=== PATIENT | female | born 1950 | race Caucasian/White ===

== ENCOUNTER 2019-08-04 17:26 | Inpatient (IN) ==
[2019-08-04] MEDS ORDERED: ASPIRIN CHEW 324 MG PO STA (17:32)
[2019-08-04] MEDS ORDERED: SODIUM CHLORIDE 0.9% 500 ML IV ONE (17:32)
--- NOTE | 2019-08-04 17:34 | Emergency Department Note ---
Impression & Plan Atrial fibrillation with RVR, Chest pain, Acute hypokalemia, Abnormal ECG Allergies Allergies Allergy/AdvReac Type Severity Reaction Status Date / Time No Known Allergies Allergy Verified 08/04/19 18:19 Home Meds Home Medications Medication Instructions Recorded Confirmed alprazolam 0.25 mg PO HS PRN 08/04/19 08/04/19 aspirin 81 mg PO QAM 08/04/19 08/04/19 cholecalciferol (vitamin D3) 1,000 unit PO QAM 08/04/19 08/04/19 [Vitamin D3] ibuprofen 600 mg PO Q6H PRN 08/04/19 08/04/19 lisinopril-hydrochlorothiazide 1 tab PO QAM 08/04/19 08/04/19 melatonin 5 mg PO HS PRN 08/04/19 08/04/19 metformin 500 mg PO QAM 08/04/19 08/04/19 multivitamin 1 tab PO QAM 08/04/19 08/04/19 omeprazole magnesium [Prilosec OTC] 20 mg PO QAM 08/04/19 08/04/19 ED Provider Note NAME: DARYL PEÑA AGE: 69 SEX: F : 1950 ARRIVES VIA: Ambulance INFORMANT: Patient ED PROVIDER(S): Oskar Beltran DO CHIEF COMPLAINT: Palpitations HPI: Patient is a 69-year-old female who presents the ER for palpitations. She notes that she feels her heart rate racing. It started around 2 PM and has been persistent. It has down slightly but she notes it comes and goes. She can feel it in her throat. She does have a little bit of a burning in her throat. No other chest pain or shortness of breath. No nausea vomiting or diarrhea. She is been eating and drinking appropriately. She is a previous [employer] nurse. She has never had this before. ROS: See above HPI for pertinent positives & negatives. A total of 10 systems reviewed and were otherwise negative. PAST MEDICAL HISTORY:hypertension PAST SURGICAL HISTORY:L knee replacement FAMILY HISTORY:Cancer and Diabetes SOCIAL HISTORY:denies alcohol HOME MEDICATIONS:See Below ALLERGIES:See Below VITALS:See Below PHYSICAL EXAMINATION: GENERAL: Sitting up in bed, alert, well appearing, well nourished, no distress, non-toxic EYE EXAM: normal conjunctiva. OROPHARYNX: no exudate, no erythema, lips, buccal mucosa, and tongue normal and mucous membranes are moist NECK: supple, no nuchal rigidity, no adenopathy, non-tender LUNGS: Clear to auscultation. Normal chest wall mechanics HEART: Tachycardic and irregularly irregular, S1 normal and S2 normal ABDOMEN: abdomen soft, non-tender, normo-active bowel sounds, no masses, no rebound or guarding. BACK: Back is symmetrical on inspection and there is no deformity, no midline tenderness, no CVA tenderness. SKIN: no rashes and no bruising UPPER EXTREMITIES: upper extremities are grossly normal. LOWER EXTREMITIES: No pitting edema. NEURO EXAM: Normal sensorium, cranial nerves II-XII grossly intact, normal speech, no gross weakness of arms, no gross weakness of legs. MEDICAL DECISION MAKING: Patient is a 69-year-old female from out of town that presents the ER for palp itations. She was brought in by EMS. Upon arrival she was found to be in A. fib with RVR. Per EMS she went in and out of A. fib with RVR to a sinus rhythm on 2 separate occasions. She did the same thing here following a bolus of Cardizem. IV was established blood work was obtained. Labs show no significant leukocytosis or anemia. INR was unremarkable. BMP with a mild hypokalemia. LFTs bilirubin and troponin was negative. Lipase was negative. She was given IV potassium along with oral potassium. She is given IV magnesium. EKG show A. fib with RVR and a sinus bradycardia. Initial EKG had ST depressions which I do favor secondary to the rate as they improved with the second EKG. Patient was given aspirin. She was given a bolus IV fluids. She is updated bedside. Due to the multiple occurrences of in and out of A. fib with RVR I discussed the case with the hospitalist for observation. Triage Nursing notes reviewed. Prior medical records reviewed Vital Signs: reviewed and remarkable for tachycardia Differential diagnosis: Differential diagnoses includes but is not limited to acute coronary syndrome, myocardial infarction, pericarditis, pulmonary embolus, aortic dissection, pneumonia, pneumothorax, musculoskeletal, shingles, esophageal. ER treatment provided: See below Diagnostics interpreted by me: ECG: A. fib with RVR rate of [address] depressions in the inferior lines and high lateral Septal Q waves ST depressions in the lateral leads EKG#2 Sinus bradycardia rate of [address] wave changes in the inferior leads Septal Q waves No PVCs Cardiac Monitoring: A. fib with a rate of 121. Laboratory studies: As stated above and show below. Imaging studies: Portable AP upright 1 view shows no focal infiltrate or pneumothorax Consultation(s): Dr. Roger Rosa ED COURSE: Procedures: none Past Med/Surg History Social History Feels Safe at Home: Yes Smoking Status: Never smoker Results & Data (ED) Vital Signs Vital Signs - 24 hr 08/04/19 17:34 08/04/19 17:37 08/04/19 17:40 Temperature 36.9 C Temperature Source Oral Pulse Rate 119 H 153 H 126 H Pulse Rate [Finger] 120 H Pulse Rate from SpO2 Sensor 107 H 153 H 119 H Respiratory Rate 15 17 21 Blood Pressure 128/82 128/82 Blood Pressure [Right Arm] 128/82 Blood Pressure Mean 97 94 Blood Pressure Mean [Right Arm] 97 Pulse Oximetry 97 98 97 Oxygen Delivery Method Room Air Room Air Room Air Sepsis Recent Fever Within 48 Hours No Sepsis New/Unexplained Change in Mental Status No Sepsis Action Taken by Nursing No Action Required 08/04/19 18:02 08/04/19 18:10 08/04/19 18:20 Temperature Temperature Source Pulse Rate 96 H 90 69 Pulse Rate [Finger] Pulse Rate from SpO2 Sensor 78 56 L 69 Respiratory Rate 16 18 17 Blood Pressure Blood Pressure [Right Arm] Blood Pressure Mean Blood Pressure Mean [Right Arm] Pulse Oximetry 98 96 97 Oxygen Delivery Method Room Air Room Air Room Air Sepsis Recent Fever Within 48 Hours Sepsis New/Unexplained Change in Mental Status Sepsis Action Taken by Nursing 08/04/19 18:30 08/04/19 18:31 08/04/19 18:40 Temperature Temperature Source Pulse Rate 58 L 60 61 Pulse Rate [Finger] Pulse Rate from SpO2 Sensor 59 L 58 L Respiratory Rate 15 16 13 Blood Pressure 125/54 L Blood Pressure [Right Arm] Blood Pressure Mean 84 Blood Pressure Mean [Right Arm] Pulse Oximetry 96 97 Oxygen Delivery Method Room Air Room Air Room Air Sepsis Recent Fever Within 48 Hours Sepsis New/Unexplained Change in Mental Status Sepsis Action Taken by Nursing 08/04/19 19:00 Temperature Temperature Source Pulse Rate 56 L Pulse Rate [Finger] Pulse Rate from SpO2 Sensor 54 L Respiratory Rate 22 Blood Pressure 126/55 L Blood Pressure [Right Arm] Blood Pressure Mean 80 Blood Pressure Mean [Right Arm] Pulse Oximetry 97 Oxygen Delivery Method Sepsis Recent Fever Within 48 Hours Sepsis New/Unexplained Change in Mental Status Sepsis Action Taken by Nursing Laboratory Data Result diagrams: 08/04/19 17:44 08/04/19 17:44 Lab Results 08/04/19 08/04/19 08/04/19 Range/Units 17:44 17:44 17:44 WBC 10.53 (4.8-10.8) K/uL RBC 4.51 (4.2-5.4) M/uL Hgb 13.4 (12.0-16.0) g/dL Hct 40.4 (37-47) % MCV 89.6 (80-100) fL MCH 29.7 (25-34) pg MCHC 33.2 (32-36) g/dL RDW Std Deviation 47.3 H (36.4-46.3) fL RDW Coeff of Jay 14.5 (11.5-14.5) % Plt Count 286 (130-400) K/uL MPV 9.2 (7.4-10.4) fL Immature Gran % (Auto) 0.3 % Neut % (Auto) 67.1 % Lymph % (Auto) 24.2 % [place] % (Auto) 7.1 % Eos % (Auto) 1.0 % Baso % (Auto) 0.3 % Immature Gran # (Auto) 0.03 H (0.00-0.02) K/uL Neut # (Auto) 7.06 H (1.4-6.5) K/uL Lymph # (Auto) 2.55 (1.2-3.4) K/uL [place] # (Auto) 0.75 H (0.11-0.59) K/uL Eos # (Auto) 0.11 (0-0.5) K/uL Baso # (Auto) 0.03 (0-0.2) K/uL PT 11.0 (9.0-12.0) Seconds INR 1.0 (0.9-1.1) APTT 25.4 (21.0-31.0) Seconds PTT Ratio 0.9 Sodium 142 (136-145) mmol/L Potassium 2.9 L (3.5-5.1) mmol/L Chloride 111 H (98-107) mmol/L Carbon Dioxide 23 (21-32) mmol/L Anion Gap 8.0 (3-11) BUN 16 (7-18) mg/dl Creatinine 1.32 H (0.6-1.2) mg/dl Est Cr Clr Drug Dosing 35.9 ml/min Est GFR ( Amer) 46.9 Est GFR (Non-Af Amer) 40.5 BUN/Creatinine Ratio 11.7 (10-20) Glucose 173 H (70-99) mg/dl Calcium 9.7 (8.5-10.1) mg/dl Total Bilirubin 0.3 (0.2-1) mg/dl AST 12 L (15-37) U/L ALT 22 (12-78) U/L Alkaline Phosphatase 73 (45-117) U/L Troponin I < 0.015 (0-0.045) ng/ml Total Protein 7.6 (6.4-8.2) gm/dl Albumin 3.8 (3.4-5.0) gm/dl Globulin 3.8 (2.5-4.0) gm/dl Albumin/Globulin Ratio 1.0 (0.9-2) Lipase 153 (73-393) U/L Administered Medications Potassium Chloride (K [place] / Wtr) 10 meq in 100 mls @ 100 mls/hr IV Q1H RINA Stop: 08/04/19 20:59 Last Admin: 08/04/19 19:01 Dose: 100 mls/hr Documented by: [id number] Magnesium Sulfate/Dextrose (Magnesium Sulfate / D5w) 1 gm in 100 mls @ 100 mls/hr IV ONE ONE Stop: 08/04/19 19:45 Last Admin: 08/04/19 19:02 Dose: 100 mls/hr Documented by: [id number] Discontinued Medications Aspirin (Aspirin) 324 mg PO NOW STA Stop: 08/04/19 17:33 Last Admin: 08/04/19 18:04 Dose: 324 mg Documented by: [id number] Diltiazem HCl (Cardizem) 5 mg IV NOW STA Stop: 08/04/19 17:40 Last Admin: 08/04/19 18:09 Dose: 5 mg Documented by: [id number] Cosigned by: [id number] Sodium Chloride (Nss) 500 mls @ 999 mls/hr IV .Q31M ONE Stop: 08/04/19 18:02 Last Infusion: 08/04/19 18:36 Dose: 0 mls/hr Documented by: [id number] Admin: 08/04/19 18:04 Dose: 999 mls/hr Documented by: [id number] Discharge Plan Visit Data Chief Complaint: Cardiac Assessment Stated Complaint: CARDIAC ASSESSMENT, (AFIB) ED Provider: Oskar Beltran Discharge Problem: Atrial fibrillation with RVR, Chest pain, Acute hypokalemia, Abnormal ECG Forms Stand Alone Forms: [facility] [place] [employer] Prescriptions Prescriptions: No Action multivitamin Tablet 1 tab PO QAM RF: 0 metformin 500 mg Tablet 500 mg PO QAM RF: 0 aspirin 81 mg Tablet,Delayed Release (Dr/Ec) 81 mg PO QAM RF: 0 alprazolam 0.25 mg Tablet 0.25 mg PO HS PRN (Reason: Anxiety) RF: 0 lisinopril-hydrochlorothiazide 20-25 mg Tablet 1 tab PO QAM RF: 0 ibuprofen 600 mg Tablet 600 mg PO Q6H PRN (Reason: Pain) RF: 0 cholecalciferol (vitamin D3) [Vitamin D3] 25 mcg (1,000 unit) Capsule 1,000 unit PO QAM RF: 0 Prilosec OTC 20 mg Tablet,Delayed Release (Dr/Ec) 20 mg PO QAM RF: 0 melatonin 5 mg Tablet 5 mg PO HS PRN (Reason: Sleep) RF: 0 Discharge Problem: Chest pain Qualifiers: Chest pain type: unspecified Qualified Code(s): R07.9 - Chest pain, unspecified
[2019-08-04] MEDS ORDERED: dilTIAZem HCl 5 MG/ML 5 ML VIAL IV STA (17:39)
[2019-08-04] MEDS ORDERED: STAT IV Infusion **Titration per Protocol STA (17:39)
[2019-08-04] MEDS ORDERED: dilTIAZem HCL 125 MG in DEXTROSE 5% 100 ML IV SCH (17:45)
[2019-08-04 17:54] LABS: Basophils # (auto) 0.03 K/uL (0-0.2); Basophils % (auto) 0.3 %; Eosinophils # (auto) 0.11 K/uL (0-0.5); Hematocrit (blood only) 40.4 % (37-47); Hemoglobin 13.4 g/dL (12.0-16.0); Immature Granulocytes # (auto) 0.03 K/uL (0.00-0.02); Immature Granulocytes % (auto) 0.3 %; Lymphocytes # (auto) 2.55 K/uL (1.2-3.4); Lymphocytes % (auto) 24.2 %; Mean Corpuscular Hemoglobin 29.7 pg (25-34); Mean Corpuscular Hgb Conc 33.2 g/dL (32-36); Mean Corpuscular Volume 89.6 fL (80-100); Mean Platelet Volume 9.2 fL (7.4-10.4); Monocytes # (auto) 0.75 K/uL (0.11-0.59); Monocytes % (auto) 7.1 %; Neutrophils # (auto) 7.06 K/uL (1.4-6.5); Neutrophils % (auto) 67.1 %; Platelet Count 286 K/uL (130-400); RDW Coefficient of Variation 14.5 % (11.5-14.5); RDW Standard Deviation 47.3 fL (36.4-46.3); Red Blood Count 4.51 M/uL (4.2-5.4); White Blood Count 10.53 K/uL (4.8-10.8)
--- NOTE | 2019-08-04 17:57 | XRay Report ---
XR chest 1V portable CLINICAL HISTORY: Chest Pain dyspnea COMPARISON STUDY: No previous studies for comparison. FINDINGS: The bones soft tissues and hemidiaphragms are normal. The cardiomediastinal silhouette is n ormal. The lungs are clear. The pulmonary vasculature is normal. IMPRESSION: Negative chest. ACT 112: Negative or not required by law. The above report was generated using voice recognition software. It may contain grammatical, syntax or spelling errors. Electronically signed by: Julián Lee M.D. 08/04/2019 5:56 PM
[2019-08-04 18:06] LABS: Partial Thromboplastin Ratio 0.9; Partial Thromboplastin Time 25.4 Seconds (21.0-31.0)
[2019-08-04 18:30] LABS: Alanine Aminotransferase 22 U/L (12-78); Albumin Level 3.8 gm/dl (3.4-5.0); Aspartate Aminotransferase 12 U/L (15-37); BUN Creatinine Ratio 11.7 (10-20); Blood Urea Nitrogen 16 mg/dl (7-18); Calcium 9.7 mg/dl (8.5-10.1); Carbon Dioxide 23 mmol/L (21-32); Chloride 111 mmol/L (98-107); Creatinine Clr Calc Pharmacy 35.9 ml/min; Est GFR (African American) 46.9; Est GFR (Non-African American) 40.5; Glucose 173 mg/dl (70-99); Lipase 153 U/L (73-393); Potassium 2.9 mmol/L (3.5-5.1); Sodium 142 mmol/L (136-145)
[2019-08-04 18:35] LABS: Alkaline Phosphatase 73 U/L (45-117); Bilirubin,Total 0.3 mg/dl (0.2-1); Globulin 3.8 gm/dl (2.5-4.0); Total Protein 7.6 gm/dl (6.4-8.2); Troponin I < 0.015 ng/ml (0-0.045)
[2019-08-04] MEDS ORDERED: MAGNESIUM SULFATE / D5W 1 GM/100 ML BAG IV ONE (18:46)
[2019-08-04] MEDS: POTASSIUM CHLORIDE / WTR 10 MEQ/100 ML PLCT IV SCH ×2 (19:01→20:04)
[2019-08-04] MEDS ORDERED: POTASSIUM CHLORIDE 20 MEQ TABCR PO STA (19:27)
--- NOTE | 2019-08-04 21:31 | History & Physical Report ---
Date of Service August 04, 2019 Assessment & Plan (1) Atrial fibrillation with RVR: 69 yo F with PMH HTN, prediabetes, GERD presents with feelings of palpitations found to be in A fib with RVR on EKG. AFib w/ RVR -admit to telemetry -EKG on arrival shows A fib with RVR. ST depressions most prominent in inferior leads that are likely 2/2 tachycardia -Pt given diltiazem bolus x1 and started on diltiazem gtt and repeat EKG showed sinus bradycardia -will stop cardizem gtt and convert to oral diltiazem 180mg -initial trop neg. Findings with low concern for ACS -nitroglycerin prn for any chest pain -CHADS-VASC score 4 points- moderate-high risk. HAS-BLED score 2 points. Will start pt on Heparin for now and can convert to PO moving forward -ECHO pending -Cardiology Consult appreciated HTN -Diltiazem as above -holding HCTZ for now as it likely contributed to pt's hypokalemia and subsequently AF. Can decide whether or not to cont or change agents moving forward Hypokalemia -K 2.9 on admission. Repleted with PO K 40 meq, IV K 10 meq -will recheck now and with daily BMP -replete as needed Prediabetes -pt notes A1c ?5.6 in Feb 2019 -hold home metformin here. SSI -A1C pending GERD -cont omeprazole FEN/GI: HH/DM2 Diet DVT Prophylaxis: Heparin Full Code Dispo: PCU Tele History of Present Illness Chief Complaint: palpitations Primary Care Provider: NO PCP 69 yo F with PMH HTN, prediabetes, GERD presents to [facility] with concerns of palpitations. Pt is from [place] and was in [place] for her mother's this AM. Pt went home and had tuna sandwich for lung and about 10 minutes later had feelings similar to that of reflux; however, states that this was a little different because she did not have the associated back/rib pain that she normally has with GERD. She felt like her heart was racing/beating out of chest and also felt this sensation in her throat. Palpitations were intermittent but persistent. Alleviated some by resting in bed, no exacerbating factors. No prior such occurrences like this before. Pt taken to where they did not have EKG capabilities but noted HR in 160s and pt brought over to ED via EMS. Associated lightheaded/dizziness, but pt otherwise denies CP, SOB, diaphoresis, ORDOÑEZ, s yncope or near syncope, edema, F/N/V/D, chills, RINCON, abd pain, urinary sxs. Pt with no other acute concerns or complaints. EKG: A fib with RVR. ST depressions most prominent in inferior leads CXR: Negative Chest Pertinent Labs: K 2.9, Cr 1.32, Glu 173, Trop neg ER Course: ASA 324mg, IV Diltiazem 5mg, Diltiazem gtt, IV MgSO4 1g, PO K 40 meq, IV K 10 meq Family Hx: Father- DM, HTN, [place] Social: Denies Tobacco, Alcohol, or Illicit Drug Use Surgical Hx: L knee replacement Allergies Allergy/AdvReac Type Severity Reaction Status Date / Time No Known Allergies Allergy Verified 08/04/19 18:19 Home Medications Home Medications Medication Instructions Recorded Confirmed Type Prilosec OTC 20 mg PO QAM 08/04/19 08/04/19 History alprazolam 0.25 mg PO HS PRN 08/04/19 08/04/19 History cholecalciferol (vitamin D3) 1,000 unit PO QAM 08/04/19 08/04/19 History [Vitamin D3] melatonin 5 mg PO HS PRN 08/04/19 08/04/19 History metformin 500 mg PO QAM 08/04/19 08/04/19 History multivitamin 1 tab PO QAM 08/04/19 08/04/19 History apixaban [Eliquis] 5 mg PO BID #60 tab 08/05/19 Rx lisinopril 20 mg PO QAM #30 tab 08/05/19 Rx Past Med/Surg History Medical History (Updated 08/06/19 @ 00:03 by Background Fritz) GERD (gastroesophageal reflux disease) HTN (hypertension), benign Insomnia Prediabetes Social History Preferred Language: Belarusian Communication Ability: Effective Residential Concierge Required: No Beliefs That Will Affect Care: None Current Living Situation: Alone Feels Safe at Home: Yes Smoking Status: Never smoker Second Hand Exposure: No ; Hx Alcohol Use: No Hx Substance Use: No Review of Systems Review of Systems: All systems reviewed & are unremarkable except as noted in HPI & below Physical Exam Constitutional: WD/WN, vitals as above Eyes: PERRL, conjunctivae normal, anicteric sclerae ENMT: external ear and nose normal, oropharynx normal Respiratory: normal respiratory effort, lungs clear to auscultation Cardiovascular: Rate/Rhythm: regular rhythm and + bradycardic Gastrointestinal (Abdomen): normal bowel sounds, soft, nontender, no hepatosplenomegaly Skin: no rashes, warm and dry Psychiatric: A+Ox3, euthymic affect Results & Data Results & Data ([facility]) Vital Signs (Past 12 Hours) Vital Signs Temp Pulse Pulse Resp BP BP Pulse Ox 08/04/19 20:31 60 18 99 08/04/19 20:30 65 18 116/59 L 98 08/04/19 20:01 49 L 16 97 08/04/19 20:00 48 L 16 117/56 L 97 08/04/19 19:31 51 L 16 97 08/04/19 19:30 53 L 16 98 08/04/19 19:00 56 L 22 126/55 L 97 08/04/19 18:40 61 13 97 08/04/19 18:31 60 16 96 08/04/19 18:30 58 L 15 125/54 L 08/04/19 18:20 69 17 97 08/04/19 18:10 90 18 96 08/04/19 18:02 96 H 16 98 08/04/19 17:40 126 H 21 97 08/04/19 17:37 153 H 17 128/82 98 08/04/19 17:34 36.9 C 119 H 120 H 15 128/82 128/82 97 Laboratory Results Laboratory Results - last 24 hr 08/04/19 08/04/19 08/04/19 17:44 17:44 17:44 WBC 10.53 RBC 4.51 Hgb 13.4 Hct 40.4 MCV 89.6 MCH 29.7 MCHC 33.2 RDW Std Deviation 47.3 H RDW Coeff of Jay 14.5 Plt Count 286 MPV 9.2 Immature Gran % (Auto) 0.3 Neut % (Auto) 67.1 Lymph % (Auto) 24.2 [place] % (Auto) 7.1 Eos % (Auto) 1.0 Baso % (Auto) 0.3 Immature Gran # (Auto) 0.03 H Neut # (Auto) 7.06 H Lymph # (Auto) 2.55 [place] # (Auto) 0.75 H Eos # (Auto) 0.11 Baso # (Auto) 0.03 PT 11.0 INR 1.0 APTT 25.4 PTT Ratio 0.9 Sodium 142 Potassium 2.9 L Chloride 111 H Carbon Dioxide 23 Anion Gap 8.0 BUN 16 Creatinine 1.32 H Est Cr Clr Drug Dosing 35.9 Est GFR ( Amer) 46.9 Est GFR (Non-Af Amer) 40.5 BUN/Creatinine Ratio 11.7 Glucose 173 H Calcium 9.7 Magnesium Total Bilirubin 0.3 AST 12 L ALT 22 Alkaline Phosphatase 73 Troponin I < 0.015 Total Protein 7.6 Albumin 3.8 Globulin 3.8 Albumin/Globulin Ratio 1.0 Lipase 153 08/04/19 17:44 WBC RBC Hgb Hct MCV MCH MCHC RDW Std Deviation RDW Coeff of Jay Plt Count MPV Immature Gran % (Auto) Neut % (Auto) Lymph % (Auto) [place] % (Auto) Eos % (Auto) Baso % (Auto) Immature Gran # (Auto) Neut # (Auto) Lymph # (Auto) [place] # (Auto) Eos # (Auto) Baso # (Auto) PT INR APTT PTT Ratio Sodium Potassium Chloride Carbon Dioxide Anion Gap BUN Creatinine Est Cr Clr Drug Dosing Est GFR ( Amer) Est GFR (Non-Af Amer) BUN/Creatinine Ratio Glucose Calcium Magnesium 2.0 Total Bilirubin AST ALT Alkaline Phosphatase Troponin I Total Protein Albumin Globulin Albumin/Globulin Ratio Lipase Medications Administered Current Inpatient Medications Diltiazem HCl 125 mg/ Dextrose 125 mls @ 5 mls/hr IV .Q24H [facility]; Protocol Stop: 09/03/19 17:44 Code Status & VTE Plan Code Status FULL Supervising Physician Co-Signing Physician Notes Attending addendum: I have physically seen this patient, have supervised the medical residents activities, and agree with the H&P unless as otherwise noted. Assessment and Plan: Atrial fibrillation with RVR/hypertension/hypokalemia- The patient will be admitted to telemetry for serial cardiac enzymes, serial EKG's, cardiac rhythm monitoring and a 2-D echocardiogram with Dopplers. Hold HCTZ. Replete potassium orally with 40 mEq, and IV with 2K riders. Patient was given diltiazem IV bolus and then started on Cardizem drip, with resultant conversion to sinus bradycardia. Cardizem drip will now be discontinued. Consult cardiology. CHADS-VASC score of 4. start heparin drip for the evening, and can be converted to oral anticoagulation in the a.m. Remainder of orders and notations as noted. Resident Activity Tracking Resident Involvement: Resident Care Provided Care Provided: Adult Hospital Medicine
[2019-08-04] MEDS ORDERED: GLUCOSE 40% GEL 15 GM TUBE PO PRN (23:44)
[2019-08-04] MEDS ORDERED: IBUPROFEN 600 MG TAB PO PRN (23:44)
[2019-08-04] MEDS ORDERED: ALUMINUM/MAGNESIUM SUSP 30 ML UDC PO PRN (23:44)
[2019-08-04] MEDS ORDERED: DEXTROSE 50% 50 ML SYRINGE IV PRN (23:44)
[2019-08-04] MEDS ORDERED: GLUCAGON FOR INJ 1 MG VIAL SQ PRN (23:44)
[2019-08-04] MEDS ORDERED: ONDANSETRON INJ 2 MG/ML 2 ML VIAL IV PRN (23:44)
[2019-08-04] MEDS ORDERED: CARBOHYDRATES FOR HYPOGLYCEMIA PO PRN (23:44)
[2019-08-04] MEDS ORDERED: ACETAMINOPHEN 325 MG TAB PO PRN (23:44)
[2019-08-04] MEDS ORDERED: GLUCOSE 10 TABS/TUBE PO PRN (23:44)
[2019-08-04] MEDS ORDERED: HEPARIN SODIUM/DEXTROSE 25,000 UNITS/500 ML BAG IV SCH (23:44)
[2019-08-04] MEDS ORDERED: ALPRAZolam 0.25 MG TABLET PO PRN (23:44)
[2019-08-04] MEDS ORDERED: NITROGLYCERIN SL 0.4 MG/TAB TAB SL PRN (23:44)
[2019-08-05] MEDS: Heparin IV Standard *NO* Bolus IV SCH ×2 (00:35→04:19)
[2019-08-05 00:55] LABS: Magnesium 2.3 mg/dl (1.8-2.4); Potassium 3.7 mmol/L (3.5-5.1)
[2019-08-05 07:23] LABS: Basophils # (auto) 0.02 K/uL (0-0.2); Basophils % (auto) 0.2 %; Eosinophils # (auto) 0.19 K/uL (0-0.5); Eosinophils % (auto) 2.4 %; Hematocrit (blood only) 35.1 % (37-47); Hemoglobin 11.5 g/dL (12.0-16.0); Immature Granulocytes # (auto) 0.01 K/uL (0.00-0.02); Immature Granulocytes % (auto) 0.1 %; Lymphocytes # (auto) 2.57 K/uL (1.2-3.4); Mean Corpuscular Hemoglobin 29.6 pg (25-34); Mean Corpuscular Hgb Conc 32.8 g/dL (32-36); Mean Corpuscular Volume 90.5 fL (80-100); Mean Platelet Volume 9.3 fL (7.4-10.4); Monocytes # (auto) 0.68 K/uL (0.11-0.59); Monocytes % (auto) 8.5 %; Neutrophils # (auto) 4.55 K/uL (1.4-6.5); Neutrophils % (auto) 56.8 %; Platelet Count 264 K/uL (130-400); RDW Coefficient of Variation 14.9 % (11.5-14.5); Red Blood Count 3.88 M/uL (4.2-5.4); White Blood Count 8.02 K/uL (4.8-10.8)
[2019-08-05 07:42] LABS: Estimated Average Glucose 114 mg/dl; Hemoglobin A1C 5.6 % (4.5-5.6)
[2019-08-05 07:44] LABS: Partial Thromboplastin Time 54.9 Seconds (21.0-31.0)
[2019-08-05 07:50] LABS: BUN Creatinine Ratio 15.1 (10-20); Calcium 9.2 mg/dl (8.5-10.1); Creatinine Clr Calc Pharmacy 47.9 ml/min; Est GFR (African American) 67.3; Potassium 3.5 mmol/L (3.5-5.1)
[2019-08-05] MEDS: INSULIN ASPART 100 UNITS/ML 3 ML PEN SC SCH ×2 (08:13→11:48)
[2019-08-05] MEDS ORDERED: POTASSIUM CHLORIDE 20 MEQ TABCR PO STA (08:18)
[2019-08-05] MEDS ORDERED: INSULIN GLARGINE SOLOSTAR 100 UNITS/ML 3 ML PEN SC SCH (09:00)
[2019-08-05] MEDS ORDERED: dilTIAZem ER 180 MG CAPCR PO SCH (09:00)
[2019-08-05] MEDS ORDERED: ASPIRIN 81 MG ECTAB PO SCH (09:00)
[2019-08-05] MEDS ORDERED: PANTOprazole 40 MG TAB PO SCH (09:00)
[2019-08-05] MEDS ORDERED: MULTIVITAMIN TAB PO SCH (09:00)
[2019-08-05] MEDS ORDERED: CHOLECALCIFEROL 1,000 UNITS 25 MCG TAB PO SCH (09:00)
--- NOTE | 2019-08-05 11:30 | XCELERA ---
[id number] [id number]
[2019-08-05] MEDS ORDERED: APIXABAN 5 MG TABLET PO SCH (13:40)
[2019-08-05] MEDS ORDERED: lisinopriL 20 MG TAB PO SCH (14:30)
--- NOTE | 2019-08-05 14:40 | Cardiology Consultation ---
Date of Consultation August 05, 2019 Assessment & Plan (1) Atrial fibrillation with RVR: Patient has no history of atrial fibrillation. She spontaneously converted to sinus rhythm after few hours of the arrhythmia. The exact precipitant of the arrhythmia is unclear. She did have significant hypokalemia but this is not definitely associated with her arrhythmia. He is not give a good history for sleep apnea. She does have longstanding hypertension however. No significant valvular heart disease on her echocardiogram. No significant left atrial dilation. Not on bisphosphonates. Mild obesity. Her chads Vasc score is 3 based on her age, gender and history of hypertension. She is amenable to systemic anticoagulation with Eliquis which seems like the most appropriate agent given her renal function. Do not believe she requires any additional medical therapy at this point. It is unclear when she will have any additional episodes of atrial fibrillation. She could certainly have a prolonged period without atrial fibrillation and I am not confident she benefits from a daily dose of any medication for either rhythm or rate control. However, if she does require more intensive antihypertensive therapy treatment with diltiazem may be a good choice. (2) Abnormal ECG: He has nonspecific changes on her EKG. Reportedly had normal stress testing on 2 occasions most recent of which late last year. She exercises regularly without symptoms angina or coronary insufficiency. No elevated cardiac biomarkers during this episode. Do not believe she requires any additional risk stratification at this time. (3) Mitral regurgitation: Mild. This can be followed over time. History of Present Illness Reason for Consultation: Atrial fibrillation Requesting Physician: Carrie Attending Physician: Maria T Isabel MD History of Present Illness The patient is 69-year-old woman without a known history of cardiac disease who began experience symptoms of palpitations, indigestion, and a sense of throat tightness acutely yesterday evening. This occurred immediately after eating a meal. Initially she felt her symptoms may be related to her typical reflux, but she also had some associated dizziness and mild dyspnea. She did take some and acids without relief. Based on the nature of her symptoms she was advised to seek medical attention initially went to an urgent care where she was found to be tachycardic. She was sent to the emergency room where she was discovered to have atrial fibrillation. Patient was started on diltiazem and eventually converted spontaneously to a sinus rhythm. Her symptoms resolved at that point. She has not had any recurrent symptoms since admission. In general she is an active individual who claims exercise regularly. She performs activity on an elliptical as well as treadmill. She does not have symptoms of exertional chest discomfort or limiting dyspnea. She has not report the symptoms at other times. She has not been aware of palpitations. She generally does not have dizziness or lightheadedness. No history of syncope. She does have reflux disease. 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 She has undergone prior echocardiography and stress testing on 2 occasions the most recent which appeared to be March of 2019. This was performed prior to a screening colonoscopy. Allergies Allergy/AdvReac Type Severity Reaction Status Date / Time No Known Allergies Allergy Verified 08/04/19 18:19 Home Medications Home Medications Medication Instructions Recorded Confirmed Type alprazolam 0.25 mg PO HS PRN 08/04/19 08/04/19 History aspirin 81 mg PO QAM 08/04/19 08/04/19 History cholecalciferol (vitamin D3) 1,000 unit PO QAM 08/04/19 08/04/19 History [Vitamin D3] ibuprofen 600 mg PO Q6H PRN 08/04/19 08/04/19 History lisinopril-hydrochlorothiazide 1 tab PO QAM 08/04/19 08/04/19 History melatonin 5 mg PO HS PRN 08/04/19 08/04/19 History metformin 500 mg PO QAM 08/04/19 08/04/19 History multivitamin 1 tab PO QAM 08/04/19 08/04/19 History omeprazole magnesium [Prilosec OTC] 20 mg PO QAM 08/04/19 08/04/19 History Patient History Social History Preferred Language: [place] Communication Ability: Effective Graduate Teacher Education Required: No Beliefs That Will Affect Care: None Current Living Situation: Alone Other Information That Helps Us Care for You: No Feels Safe at Home: Yes Safety Concerns: Feels Safe At This Time Smoking Status: Never smoker Do You Dip or Chew Tobacco: No ; Second Hand Exposure: No ; Hx Alcohol Use: No Hx Substance Use: No Review of Systems Review of Systems: All systems reviewed & are unremarkable except as noted in HPI & below No recent fevers or chills. Eating a normal diet. Compliant with medications. Perhaps under more stress due to her mother's . Physical Exam Physical Exam: She is alert and oriented x3. Mood affect appear normal. She answered all questions appropriately. HEENT: Sclerae are anicteric. Pupils are equal and reactive to light and accommodation. Extraocular movements were intact. Neuro: Cranial nerves intact Neck: Examination of the submandibular region did not reveal any significant lymphadenopathy. Carotids are palpable bilaterally and free of bruits on auscultation. There was no evidence of jugular venous distention. The thyroid was not enlarged. Lungs: Lungs are clear to auscultation bilaterally. There are no rales wheezes or rhonchi. She has normal respiratory effort without use of accessory muscles. There is normal pulmonary excursion. Cardiac: The rhythm was regular. S1 and S2 were normal. There are no murmurs on examination. The PMI was not markedly displaced on palpation. Abdomen: The abdomen was soft and nontender. Extremities: Patient has bilateral radial pulses that are equal in intensity. There is no evidence cyanosis or clubbing. There was no evidence of significant peripheral edema bilaterally. Skin: There are no rashes noted on examination today. Results & Data ([facility]) Vital Signs (Past 12 Hours) Vital Signs Temp Pulse Resp BP Pulse Ox 08/05/19 07:30 36.6 C 54 L 19 153/53 H 97 08/05/19 04:02 36.9 C 50 L 18 103/36 L 96 Laboratory Results Abnormal Lab Results 08/04/19 08/04/19 08/04/19 17:44 17:44 17:44 WBC 10.53 RBC 4.51 Hgb 13.4 Hct 40.4 MCV 89.6 MCH 29.7 MCHC 33.2 RDW Std Deviation 47.3 H RDW Coeff of Jay 14.5 Plt Count 286 MPV 9.2 Immature Gran % (Auto) 0.3 Neut % (Auto) 67.1 Lymph % (Auto) 24.2 [place] % (Auto) 7.1 Eos % (Auto) 1.0 Baso % (Auto) 0.3 Immature Gran # (Auto) 0.03 H Neut # (Auto) 7.06 H Lymph # (Auto) 2.55 [place] # (Auto) 0.75 H Eos # (Auto) 0.11 Baso # (Auto) 0.03 PT 11.0 INR 1.0 APTT 25.4 PTT Ratio 0.9 Sodium 142 Potassium 2.9 L Chloride 111 H Carbon Dioxide 23 Anion Gap 8.0 BUN 16 Creatinine 1.32 H Est Cr Clr Drug Dosing 35.9 Est GFR ( Amer) 46.9 Est GFR (Non-Af Amer) 40.5 BUN/Creatinine Ratio 11.7 Glucose 173 H POC Glucose Estimat Average Glucose Hemoglobin A1c Calcium 9.7 Magnesium Total Bilirubin 0.3 AST 12 L ALT 22 Alkaline Phosphatase 73 Troponin I < 0.015 Total Protein 7.6 Albumin 3.8 Globulin 3.8 Albumin/Globulin Ratio 1.0 Lipase 153 Hepatitis C Ab Screen 08/04/19 08/05/19 08/05/19 17:44 00:05 06:33 WBC RBC Hgb Hct MCV MCH MCHC RDW Std Deviation RDW Coeff of Jay Plt Count MPV Immature Gran % (Auto) Neut % (Auto) Lymph % (Auto) [place] % (Auto) Eos % (Auto) Baso % (Auto) Immature Gran # (Auto) Neut # (Auto) Lymph # (Auto) [place] # (Auto) Eos # (Auto) Baso # (Auto) PT INR APTT PTT Ratio Sodium Potassium 3.7 D Chloride Carbon Dioxide Anion Gap BUN Creatinine Est Cr Clr Drug Dosing Est GFR ( Amer) Est GFR (Non-Af Amer) BUN/Creatinine Ratio Glucose POC Glucose Estimat Average Glucose Hemoglobin A1c Calcium Magnesium 2.0 2.3 Total Bilirubin AST ALT Alkaline Phosphatase Troponin I Total Protein Albumin Globulin Albumin/Globulin Ratio Lipase Hepatitis C Ab Screen Neg 08/05/19 08/05/19 08/05/19 06:33 06:33 06:33 WBC 8.02 RBC 3.88 L Hgb 11.5 L Hct 35.1 L MCV 90.5 MCH 29.6 MCHC 32.8 RDW Std Deviation 49.0 H RDW Coeff of Jay 14.9 H Plt Count 264 MPV 9.3 Immature Gran % (Auto) 0.1 Neut % (Auto) 56.8 Lymph % (Auto) 32.0 [place] % (Auto) 8.5 Eos % (Auto) 2.4 Baso % (Auto) 0.2 Immature Gran # (Auto) 0.01 Neut # (Auto) 4.55 Lymph # (Auto) 2.57 [place] # (Auto) 0.68 H Eos # (Auto) 0.19 Baso # (Auto) 0.02 PT INR APTT PTT Ratio Sodium 144 Potassium 3.5 Chloride 113 H Carbon Dioxide 26 Anion Gap 5.0 BUN 15 Creatinine 0.98 D Est Cr Clr Drug Dosing 47.9 Est GFR ( Amer) 67.3 Est GFR (Non-Af Amer) 58.0 BUN/Creatinine Ratio 15.1 Glucose 102 H POC Glucose Estimat Average Glucose 114 Hemoglobin A1c 5.6 Calcium 9.2 Magnesium Total Bilirubin AST ALT Alkaline Phosphatase Troponin I Total Protein Albumin Globulin Albumin/Globulin Ratio Lipase Hepatitis C Ab Screen 08/05/19 08/05/19 08/05/19 06:33 06:33 07:07 WBC RBC Hgb Hct MCV MCH MCHC RDW Std Deviation RDW Coeff of Jay Plt Count MPV Immature Gran % (Auto) Neut % (Auto) Lymph % (Auto) [place] % (Auto) Eos % (Auto) Baso % (Auto) Immature Gran # (Auto) Neut # (Auto) Lymph # (Auto) [place] # (Auto) Eos # (Auto) Baso # (Auto) PT INR APTT 54.9 H* PTT Ratio 2.0 Sodium Potassium Chloride Carbon Dioxide Anion Gap BUN Creatinine Est Cr Clr Drug Dosing Est GFR ( Amer) Est GFR (Non-Af Amer) BUN/Creatinine Ratio Glucose POC Glucose 101 H Estimat Average Glucose Hemoglobin A1c Calcium Magnesium Total Bilirubin AST ALT Alkaline Phosphatase Troponin I 0.026 Total Protein Albumin Globulin Albumin/Globulin Ratio Lipase Hepatitis C Ab Screen 08/05/19 11:02 WBC RBC Hgb Hct MCV MCH MCHC RDW Std Deviation RDW Coeff of Jay Plt Count MPV Immature Gran % (Auto) Neut % (Auto) Lymph % (Auto) [place] % (Auto) Eos % (Auto) Baso % (Auto) Immature Gran # (Auto) Neut # (Auto) Lymph # (Auto) [place] # (Auto) Eos # (Auto) Baso # (Auto) PT INR APTT PTT Ratio Sodium Potassium Chloride Carbon Dioxide Anion Gap BUN Creatinine Est Cr Clr Drug Dosing Est GFR ( Amer) Est GFR (Non-Af Amer) BUN/Creatinine Ratio Glucose POC Glucose 108 H Estimat Average Glucose Hemoglobin A1c Calcium Magnesium Total Bilirubin AST ALT Alkaline Phosphatase Troponin I Total Protein Albumin Globulin Albumin/Globulin Ratio Lipase Hepatitis C Ab Screen Diagnostic Findings Chest x-ray obtained does have admission did not reveal any acute cardiopulmonary process. Echocardiogram performed today revealed normal LV systolic function. Mild mitral regurgitation. Normal estimated pulmonary pressures ECG Additional Comments: I reviewed the source images of her EKGs. Initial EKG demonstrated atrial fibrillation with rapid ventricular response. Minor ST segment depressions. Subsequent EKGs revealed normal sinus rhythm with sinus bradycardia and T-wave inversions in lateral precordial leads. PG Care Time/CCT Total # of Minutes Spent Total Time Spent with Patient: Total time spent is greater than 50% in coordination of care (as documented) at patient's floor/unit and/or counseling patient: Coding Level of Care Code 47717 Initial Inpt Care Lvl 3 Diagnoses Atrial fibrillation with RVR I48.91 Abnormal ECG R94.31 Mitral regurgitation I34.0
--- NOTE | 2019-08-05 15:03 | Discharge Summary ---
Date of Service August 05, 2019 Admission HPI Per Admitting Provider 69 yo F with PMH HTN, prediabetes, GERD presents to [facility] with concerns of palpitations. Pt is from [place] and was in [place] for her mother's this AM. Pt went home and had tuna sandwich for lung and about 10 minutes later had feelings similar to that of reflux; however, states that this was a little different because she did not have the associated back/rib pain that she normally has with GERD. She felt like her heart was racing/beating out of chest and also felt this sensation in her throat. Palpitations were intermittent but persistent. Alleviated some by resting in bed, no exacerbating factors. No prior such o ccurrences like this before. Pt taken to where they did not have EKG capabilities but noted HR in 160s and pt brought over to ED via EMS. Associated lightheaded/dizziness, but pt otherwise denies CP, SOB, diaphoresis, ORDOÑEZ, syncope or near syncope, edema, F/N/V/D, chills, RINCON, abd pain, urinary sxs. Pt with no other acute concerns or complaints. EKG: A fib with RVR. ST depressions most prominent in inferior leads CXR: Negative Chest Pertinent Labs: K 2.9, Cr 1.32, Glu 173, Trop neg ER Course: ASA 324mg, IV Diltiazem 5mg, Diltiazem gtt, IV MgSO4 1g, PO K 40 meq, IV K 10 meq Family Hx: Father- DM, HTN, [place] Social: Denies Tobacco, Alcohol, or Illicit Drug Use Surgical Hx: L knee replacement Principal Diagnosis Rapid atrial fibrillation Discharge Exam Constitutional WD/WN, vitals as above Eyes PERRL, conjunctivae normal, anicteric sclerae ENMT external ear and nose normal, oropharynx normal Neck trachea midline, no thyromegaly Respiratory normal respiratory effort, lungs clear to auscultation Cardiovascular RRR, no murmur, no edema Chest (Breasts) Chest: normal inspection of chest Gastrointestinal (Abdomen) normal bowel sounds, soft, nontender, no hepatosplenomegaly Musculoskeletal Extremities: extremities normal to inspection; no cyanosis and no clubbing Skin no rashes, warm and dry Neurologic moves all extremities and awake; no focal motor deficits Psychiatric A+Ox3, euthymic affect Lymphatic no lymphedema Discharge Data Allergies Allergy/AdvReac Type Severity Reaction Status Date / Time No Known Allergies Allergy Verified 08/04/19 18:19 Consultations 08/04/19 18:53 ED Decision to Admit Stat 08/04/19 23:44 Consult Cardiology Routine Ordered Studies CXR ECHO Hospital Course (1) Atrial fibrillation with RVR: Atrial fibrillation with RVR: 69 yo F with PMH HTN, prediabetes, GERD presents with feelings of palpitations found to be in A fib with RVR on EKG. AFib w/ RVR -admityed to telemetry and spontaneously converted to NSR shortly after admission -EKG on arrival shows A fib with RVR. ST depressions most prominent in inferior leads that are likely 2/2 tachycardia -Pt given diltiazem bolus x1 and started on diltiazem gtt and repeat EKG showed sinus bradycardia -was then given one dose of oral diltiazem 180mg, but had some bradycardia into the 40s which was asymptomatic -troponin neg x 2 -ECHO normal except mild MR -Cardiology Consult appreciated-recommends no AV georgina prema and recommends anticoagulation. Pt converted from her heparin gtt to Eliquis and was given a coupon for 30 days free first month. Follow up with Cardiology in [place] HTN-controlled -discontinued HCTZ as it likely contributed to pt's hypokalemia -gave Rx for lisinopril alone on discharge f/u with PCP to see if another drug should be added Hypokalemia -K 2.9 on admission. Repleted with PO K 40 meq, IV K 10 meq; now normalized -could be secondary to HCTZ which was discontinued as above -may have contributed to atrial fibrillation Prediabetes -pt notes A1c ?5.6 in Feb 2019 -continue home metformin HgbA1C here was 5.6% which is again within normal range GERD -cont omeprazole Dispo-doing very well, stable for dc to home (2) Mitral regurgitation: (3) Acute hypokalemia: (4) Abnormal ECG: (5) HTN (hypertension), benign: (6) Prediabetes: (7) GERD (gastroesophageal reflux disease): (8) Insomnia: Total Time Total Time Spent Total Time Spent (In Minutes): 35 min Total Time Includes: Examination of the Patient, Discharge Planning, Medication Reconciliation and Communication With Other Providers (Cardiology) Discharge Plan Discharge Items Patient Disposition: Home - Self-Care Reason For Visit: AFIB Discharge Diagnosis: Rapid atrial fibrillation Condition on Discharge: Good Activity: Resume your previous activity Non-emergency contact: Primary Care Provider and Census Enumerator Call non-emergency contact if: you have any medication questions and your symptoms worsen Follow-up/Referrals: PCP,NO [Primary Care Provider] - Diet: Carb Consistent or DM2 and Heart Healthy Addtl Attending Provider Instructions: You were admitted with a rapid, irregular heartbeat called atrial fibrillation. This spontaneously converted back to a normal heart rhythm after arrival. You were started on a blood thinner called Eliquis to reduce your risk of having a stroke as your risk is high with having atrial fibrillation. Your hear rate is quite low when you're in a normal rhythm so we will not start you on any heart rate lowering drugs at this time. Your potassium level was quite low on arrival here and was replaced. This could be secondary to your HCTZ and you should STOP taking this medication. You can take lisinopril alone for your blood pressure for now and follow up with your PCP. Please follow up with your Census Enumerator and PCP in [place] within 1-2 weeks after you return home. Medication Instructions: Your condition is typically treated with an anticoagulant. Anticoagulants will thin your blood to help prevent new clots. * You should take her medication exactly as directed. * Never skip a dose. * Never take a double dose. If you miss a dose, take it as soon as you remember. Call your Primary Care doctor if you experience any of the following: * Swelling or Pain in your leg * Sudden, continuous pain deep in a muscle * Pain that worsens when you are active or when you stand still for a long time * Chest Pain * Sudden Shortness of Breath * Rapid or pounding heart beat * Fainting * Dizziness * Cough with blood or bloody sputum * Sweating more than normal * Bruises * Heavy or uncontrolled bleeding * Blood in your urine, stool or vomit * Black or tarry stools * severe headache Follow Up: It is important for you to keep your follow up appointments with your medical provider. Pending Studies at Discharge: No Stand-Alone Forms: My [facility] Medications and DC Order Prescriptions: New Eliquis 5 mg Tablet 5 mg PO BID Qty: 60 RF: 0 lisinopril 20 mg Tablet 20 mg PO QAM Qty: 30 RF: 0 Continued multivitamin Tablet 1 tab PO QAM RF: 0 metformin 500 mg Tablet 500 mg PO QAM RF: 0 alprazolam 0.25 mg Tablet 0.25 mg PO HS PRN (Reason: Anxiety) RF: 0 cholecalciferol (vitamin D3) [Vitamin D3] 25 mcg (1,000 unit) Capsule 1,000 unit PO QAM RF: 0 Prilosec OTC 20 mg Tablet,Delayed Release (Dr/Ec) 20 mg PO QAM RF: 0 melatonin 5 mg Tablet 5 mg PO HS PRN (Reason: Sleep) RF: 0 Discontinued aspirin 81 mg Tablet,Delayed Release (Dr/Ec) 81 mg PO QAM RF: 0 lisinopril-hydrochlorothiazide 20-25 mg Tablet 1 tab PO QAM RF: 0 ibuprofen 600 mg Tablet 600 mg PO Q6H PRN (Reason: Pain) RF: 0 Discharge Orders: Discharge Order (Routine); Ordered 08/05/19 Ordered By: Maria T Isabel Admission Data Admit Date/Time: 08/04/19 22:27 Attending Provider: Maria T Isabel Admit Provider: Vipul Craft Primary Care Provider: PCP,NO Other Providers: Roger Rosa Christophe W. Other Interventions: Discharge Summary Assessment (RN) Last Done: 08/05/19 15:10 DC Date/Time DO NOT enter until pt leaves facility: 08/05/19 15:20 Coding Level of Care Code D/C Day Management >30 mins Diagnoses Atrial fibrillation with RVR I48.91 Mitral regurgitation I34.0 Acute hypokalemia E87.6 Abnormal ECG R94.31 HTN (hypertension), benign I10 Prediabetes R73.03 GERD (gastroesophageal reflux disease) K21.9 Insomnia G47.00
--- NOTE | 2019-08-05 15:41 | Electrocardiogram Report ---
Test Reason : Blood Pressure : / mmHG Vent. Rate : 143 BPM Atrial Rate : 174 BPM P-R Int : 000 ms QRS Dur : 088 ms QT Int : 320 ms P-R-T Axes : 000 024 231 degrees QTc Int : 493 ms Atrial fibrillation with rapid ventricular response Marked ST abnormality, possible inferior subendocardial injury Abnormal ECG No previous ECGs available Confirmed by Shayne Rios ([id number]) on 08/05/2019 3:40:54 PM Referred By: REFERRED SELF Confirmed By:Sergey Rios
--- NOTE | 2019-08-05 15:45 | Electrocardiogram Report ---
Test Reason : Blood Pressure : / mmHG Vent. Rate : 057 BPM Atrial Rate : 057 BPM P-R Int : 148 ms QRS Dur : 084 ms QT Int : 402 ms P-R-T Axes : 050 021 -39 degrees QTc Int : 391 ms Sinus bradycardia with PACs Abnormal ECG When compared with ECG of 04-AUG-2019 17:34, (unconfirmed) Sinus rhythm has replaced Atrial fibrillation Vent. rate has decreased BY [address] no longer depressed in Anterolateral leads Nonspecific T wave abnormality now evident in Anterior leads Confirmed by Shayne Rios ([id number]) on 08/05/2019 3:44:35 PM Referred By: REFERRED SELF Confirmed By:Sergey Rios
--- NOTE | 2019-08-05 15:46 | Electrocardiogram Report ---
Test Reason : Blood Pressure : / mmHG Vent. Rate : 047 BPM Atrial Rate : 047 BPM P-R Int : 132 ms QRS Dur : 086 ms QT Int : 478 ms P-R-T Axes : 046 023 -29 degrees QTc Int : 423 ms Sinus bradycardia T wave abnormality, consider lateral ischemia Abnormal ECG Confirmed by Shayne Rios ([id number]) on 08/05/2019 3:46:21 PM Referred By: REFERRED SELF Confirmed By:Sergey Rios
--- NOTE | 2019-08-06 03:19 | Billing Data ---
Date of Service August 06, 2019 Coding Level of Care Code 99483 OBS Care - Level 3
== END 2019-08-05 15:20 | disposition home or self-care (01) | DRG 310 ==
LOC: ED 17:26 → SUATTDRO 21:43 → 2E 21:43